=== PATIENT | male | born 1975 | race Caucasian/White ===

== ENCOUNTER 2023-05-20 10:14 | Day surgery (SDC) | payer OTHER ==
[~2023-05-20] VITALS: Ht 185.4 cm; Wt 103.9 kg
[~2023-05-20 10:14] MED LIST: NS 1,000 ML IV ONE; PANT40TA29 PO
[2023-05-20] MEDS ORDERED: propofoL 200 MG/20 ML VIAL As Ordered ONE (11:20)
[2023-05-20] MEDS ORDERED: LIDOCAINE 2% 100MG/5ML SDV (FOR ANES.) As Ordered ONE (11:20)
[2023-05-20] MEDS ORDERED: fentaNYL 100 MCG/2 ML INJECTION As Ordered ONE (11:21)
[2023-05-20 11:59] VITALS: TEMP 99.3
[2023-05-20 12:20] VITALS: BP 130/77; O2SAT 95
== END 2023-05-20 12:26 | disposition home or self-care (01) ==
LOC: M OPP 10:14
PROVIDERS: ATTEND Surgery
DX: Z12.11 Encounter for screening for malignant neoplasm of colon (principal); D12.5 Benign neoplasm of sigmoid colon; R10.84 Generalized abdominal pain; K30 Functional dyspepsia; Z87.891 Personal history of nicotine dependence; Z79.899 Other long term (current) drug therapy
CPT/HCPCS: 43235; 45380; 45385; 88305; J3010